=== PATIENT | female | born 1945 | race Caucasian/White ===

== ENCOUNTER 2019-02-02 07:50 | Day surgery (SDC) | payer MEDICARE, MEDICAID ==
[~2019-02-02] VITALS: Ht 165.1 cm; Wt 61.9 kg
[~2019-02-02 07:50] MED LIST: LEVO125T PO; OXYC5CAP2 PO
[2019-02-02 08:12] VITALS: BP 100/63
[2019-02-02] MEDS ORDERED: LACTATED RINGERS 1,000 ML IV SCH (08:16)
[2019-02-02] MEDS ORDERED: PLEASE ENTER HEIGHT AND WEIGHT MC SCH (08:30)
[2019-02-02] MEDS ORDERED: FENTANYL PF 250 MCG/5ML ONE (10:04)
[2019-02-02] MEDS ORDERED: PROPOFOL 10 MG/ML, 20ML ONE (10:05)
[2019-02-02] MEDS ORDERED: ONDANSETRON 2MG/ML, 2ML ONE (10:05)
[2019-02-02] MEDS ORDERED: CEFAZOLIN 1,000 MG ONE (10:05)
[2019-02-02] MEDS ORDERED: GLYCOPYRROLATE 0.2MG/1ML, 5ML ONE ×2 (10:05→10:14)
[2019-02-02] MEDS ORDERED: DEXAMETHASONE 4 MG/ML, 1ML ONE (10:05)
[2019-02-02] MEDS ORDERED: ROCURONIUM 10MG/ML,5ML ONE (10:05)
[2019-02-02] MEDS ORDERED: NEOSTIGMINE 1 MG/ML, 10ML ONE ×2 (10:05→10:14)
[2019-02-02] MEDS ORDERED: PHENYLEPHRINE 10 MG/ML ONE (10:14)
[2019-02-02] MEDS ORDERED: FENTANYL PF 100 MCG/2ML IV PRN (10:30)
[2019-02-02] MEDS ORDERED: PROMETHAZINE 25 MG/ML, 1ML IV PRN (10:30)
[2019-02-02] MEDS ORDERED: OXYcodone 5 MG/5 ML ORAL.SOL UDC PO PRN (10:30)
[2019-02-02] MEDS ORDERED: HYDROmorphone 2 MG/ML, 1ML IVPush PRN (10:30)
[2019-02-02] MEDS ORDERED: MORPHINE SULFATE 4 MG/ML, 1ML IVPush PRN (10:30)
[2019-02-02] MEDS ORDERED: OMNIPAQUE 350 MG/ML, 50 ML BOTTLE ONE (11:00)
== END 2019-02-02 12:45 | disposition home or self-care (01) ==
LOC: OUT 07:50
PROVIDERS: ATTEND Internal Medicine Geriatric Medicine
DX: C25.0 Malignant neoplasm of head of pancreas (principal); E03.9 Hypothyroidism, unspecified; Z79.890 Hormone replacement therapy; Z79.891 Long term (current) use of opiate analgesic
CPT/HCPCS: 43274; 74328; C1769; C1894; C2625; J0690; J1100; J2370; J2405; J2704; J2710; J3010; J7120; Q9967

== ENCOUNTER 2019-02-04 05:22 | Day surgery (SDC) | payer MEDICARE, MEDICAID ==
[~2019-02-04] VITALS: Ht 165.1 cm; Wt 62.0 kg
[2019-02-04] MEDS ORDERED: CEFAZOLIN 1,000 MG IVPB STA (06:04)
[2019-02-04] MEDS ORDERED: SODIUM CHLORIDE 0.9% 1,000 ML IV SCH (06:07)
[2019-02-04 06:27] VITALS: BP 107/63
[2019-02-04] MEDS ORDERED: CEFAZOLIN PMX 1GM/50ML 50 ML ONE (06:44)
[2019-02-04] MEDS ORDERED: LIDOCAINE 1%, 20ML ONE (07:57)
[2019-02-04] MEDS ORDERED: FENTANYL PF 100 MCG/2ML ONE (08:10)
[2019-02-04] MEDS ORDERED: MIDAZOLAM 1 MG/ML, 5ML ONE (08:10)
[2019-02-04] MEDS ORDERED: FLUMAZENIL 0.1 MG/1 ML, 5ML ONE (08:10)
[2019-02-04] MEDS ORDERED: NALOXONE 1 MG/ML, 2ML ONE (08:10)
[2019-02-04] MEDS ORDERED: LIDOCAINE 1%, 10ML ONE (08:55)
== END 2019-02-04 10:36 | disposition home or self-care (01) ==
LOC: OUT 05:22
PROVIDERS: ATTEND Internal Medicine
DX: C25.0 Malignant neoplasm of head of pancreas (principal); E03.9 Hypothyroidism, unspecified; Z90.49 Acquired absence of other specified parts of digestive tract; Z98.890 Other specified postprocedural states
CPT/HCPCS: 36561; 76937; 77001; 99156; 99157; C1788; J0690; J1642; J2250; J3010; J7030; J2310

== ENCOUNTER 2019-05-09 11:18 | Emergency (ER) | payer MEDICARE, MEDICAID ==
[~2019-05-09] VITALS: Ht 165.1 cm; Wt 60.1 kg
[2019-05-09] MEDS ORDERED: L.E.T SOLUTION TP ONE (11:58)
[2019-05-09] MEDS ORDERED: SODIUM CHLORIDE FLUSH 10ML SYR IVF ONE (12:00)
[2019-05-09] MEDS ORDERED: MORPHINE SULFATE 4 MG/ML, 1ML IVPush ONE (12:00)
[2019-05-09] MEDS ORDERED: ONDANSETRON 2MG/ML, 2ML IVPush ONE (12:00)
--- NOTE | 2019-05-09 12:00 | NUR ---
PT PLACED ON BP CUFF, PULSE OX. VSS. WARM BLANKET PROVIDED, CALL LIGHT WITHIN REACH.
[2019-05-09 12:30] LABS: MEAN CORPUSCULAR HGB CONC 33.7 g/dL (32.4-35.8); MEAN CORPUSCULAR VOLUME 83.1 fL (80-100); MEAN PLATELET VOLUME 8.5 fL (7.4-10.4); PLATELET COUNT 108 x10^3/uL (130-400); RED BLOOD COUNT 3.93 x10^6/uL (3.82-5.3); RED CELL DISTRIBUTION WIDTH 19.3 % (9.6-15.2)
[2019-05-09 12:36] LABS: ALANINE AMINOTRANSFERASE 224 U/L (12-78); ALBUMIN 2.5 g/dL (3.4-5.0); ANION GAP 8 mmol/L (5-15); CALCIUM 8.5 mg/dL (8.5-10.1); CHLORIDE 98 mmol/L (98-107)
[2019-05-09 12:37] LABS: ALKALINE PHOSPHATASE 253 U/L (45-117); BILIRUBIN,TOTAL 5.1 mg/dL (0.2-1.0); TOTAL PROTEIN 6.8 g/dL (6.4-8.2)
[2019-05-09] MEDS ORDERED: ONDANSETRON 2MG/ML, 2ML ONE (12:37)
[2019-05-09] MEDS ORDERED: MORPHINE SULFATE 4 MG/ML, 1ML ONE (12:37)
[2019-05-09 12:44] LABS: BASOPHILS # (AUTO) 0.01 x10^3/uL (0-0.1); BASOPHILS % (AUTO) 0 % (0-1); D-DIMER 4.39 ug/mlFEU (0.00-0.52); EOSINOPHILS # (AUTO) 0.02 x10^3/uL (0-0.4); EOSINOPHILS % (AUTO) 1 % (1-7); INTERNATIONAL NORMALIZED RATIO 1.01 (0.93-1.1); LYMPHOCYTES # (AUTO) 1.05 x10^3/uL (1-3.4); LYMPHOCYTES % (AUTO) 22 % (22-44); MD SCAN; MONOCYTES # (AUTO) 0.44 x10^3/uL (0.2-0.8); MONOCYTES % (AUTO) 9 % (2-9); NEUTROPHILS # (AUTO) 3.23 x10^3/uL (1.8-6.8); NEUTROPHILS % (AUTO) 68 % (42-75); PROTHROMBIN TIME 10.7 Seconds (9.6-11.5)
--- NOTE | 2019-05-09 12:45 | NUR ---
PORT TO R CHEST ACCESSED, UNABLE TO DRAW BLOOD OFF PORT. CALL TO LAB FOR 2ND BC TO BE DRAWN. PORT FLUSHES WELL, MEDS GIVEN PER ERP ORDER FOR NAUSEA AND BACK PAIN RATED 8/10. URINE COLLECTED/SENT TO LAB. VSS. AT BS, CALL LIGHT WITHIN REACH.
--- NOTE | 2019-05-09 13:33 | NUR ---
CALL TO CT TO VERIFY PORT ACCESS COMPATIBLE WITH CTA. PT RESING COMFORTABLY, PAIN DECREASED-PT SLEEPING INTERMITTENTLY.
[2019-05-09 13:40] LABS: MICROSCOPIC INDICATED
[2019-05-09 13:49] LABS: CULTURE INDICATED? YES
--- NOTE | 2019-05-09 14:03 | NUR ---
PT TO CT
[2019-05-09] MEDS ORDERED: OMNIPAQUE 350 MG/ML, 100ML BOTTLE ONE (14:34)
[2019-05-09 15:08] VITALS: BP 124/62
--- NOTE | 2019-05-09 15:15 | NUR ---
CT READS BACK, PT FOR RECHECK.
[2019-05-09] MEDS ORDERED: ONDA8TAB9 PO (15:32)
[2019-05-09] MEDS ORDERED: LEVO25TA4 PO (15:32)
[2019-05-09] MEDS ORDERED: PROC10TA2 PO (15:32)
[2019-05-09] MEDS ORDERED: OMEP40CA42 PO (15:32)
--- NOTE | 2019-05-09 15:34 | NUR ---
MED REC COMPLETED, AWAITING RECHECK BY ERP.
[2019-05-09] MEDS ORDERED: HYDROcodone/APAP 5/325 TABLET ONE (16:51)
[2019-05-09] MEDS ORDERED: HYDROcodone/APAP 5/325 TABLET PO ONE (17:00)
== END 2019-05-09 17:15 | disposition home or self-care (01) ==
LOC: ED 13:27
DX: K83.1 Obstruction of bile duct (principal); K85.90 Acute pancreatitis without necrosis or infection, unspecified; R10.84 Generalized abdominal pain; Z90.49 Acquired absence of other specified parts of digestive tract
CPT/HCPCS: 36415; 71045; 71275; 74177; 80053; 81001; 83605; 84145; 85025; 85379; 85610; 85730; 87040; 87086; 93005; 96374; 96375; 99284; J2270; J2405; Q9967; 87077

== ENCOUNTER 2019-05-11 07:08 | Day surgery (SDC) | payer MEDICARE, MEDICAID ==
[~2019-05-11] VITALS: Ht 165.1 cm; Wt 58.4 kg
[~2019-05-11 07:08] MED LIST changes: +LEVO25TA4 PO; +OMEP40CA42 PO; +ONDA8TAB9 PO; +PROC10TA2 PO
[2019-05-11] MEDS ORDERED: LACTATED RINGERS 1,000 ML IV SCH (07:54)
[2019-05-11] MEDS ORDERED: LIDOCAINE-MPF 1%, 2ML INFIL ONE (08:00)
[2019-05-11 08:18] VITALS: BP 133/77
[2019-05-11] MEDS ORDERED: SUCCINYLCHOLINE 20 MG/ML, 10ML ONE (10:38)
[2019-05-11] MEDS ORDERED: ROCURONIUM 10 MG/ML,10ML ONE (10:38)
[2019-05-11] MEDS ORDERED: ONDANSETRON 2MG/ML, 2ML ONE (10:38)
[2019-05-11] MEDS ORDERED: PROPOFOL 50 ML ONE (10:53)
[2019-05-11] MEDS ORDERED: DIAZEPAM 5 MG/ML, 2ML IVPush PRN (11:00)
[2019-05-11] MEDS ORDERED: FENTANYL PF 100 MCG/2ML IV PRN (11:00)
[2019-05-11] MEDS ORDERED: EPHEDRINE 50 MG/ML, 1ML IVPush PRN (11:00)
[2019-05-11] MEDS ORDERED: OXYcodone 5 MG/5 ML ORAL.SOL UDC PO PRN (11:00)
[2019-05-11] MEDS ORDERED: ONDANSETRON ODT 8 MG PO PRN (11:00)
[2019-05-11] MEDS ORDERED: DIPHENHYDRAMINE 50 MG/ML, 1ML IVPush PRN (11:00)
[2019-05-11] MEDS ORDERED: ONDANSETRON 2MG/ML, 2ML IV PRN (11:00)
[2019-05-11] MEDS ORDERED: PROMETHAZINE 25 MG/ML, 1ML IV PRN (11:00)
[2019-05-11] MEDS ORDERED: MORPHINE SULFATE 4 MG/ML, 1ML IVPush PRN (11:00)
[2019-05-11] MEDS ORDERED: EPHEDRINE 50 MG/ML, 1ML IM PRN (11:00)
[2019-05-11] MEDS ORDERED: LABETALOL 5MG/ML, 20ML IV PRN (11:00)
[2019-05-11] MEDS ORDERED: OMNIPAQUE 350 MG/ML, 50 ML BOTTLE ONE (11:17)
== END 2019-05-11 15:00 | disposition home or self-care (01) ==
LOC: OUT 07:08
PROVIDERS: ATTEND Internal Medicine
DX: C25.9 Malignant neoplasm of pancreas, unspecified (principal); K83.1 Obstruction of bile duct; I10 Essential (primary) hypertension; Z90.3 Acquired absence of stomach [part of]
CPT/HCPCS: 43276; 74328; C1769; C1874; J0330; J2405; J2704; J7120; Q9967

== ENCOUNTER → 2019-05-28 | Outpatient (CLI) | payer MEDICARE, MEDICAID | END | disposition home or self-care (01) | LOC: STAR 13:35 | PROVIDERS: ATTEND Nurse Practitioner Family | DX: Z01.818 Encounter for other preprocedural examination (principal); C25.0 Malignant neoplasm of head of pancreas | CPT/HCPCS: 93005 ==

== ENCOUNTER → 2019-05-28 | Outpatient (CLI) | payer MEDICARE, MEDICAID | END | disposition home or self-care (01) | LOC: RAD 13:32 | PROVIDERS: ATTEND Internal Medicine | DX: S33.140A Subluxation of L4/L5 lumbar vertebra, initial encounter (principal); M48.061 Spinal stenosis, lumbar region without neurogenic claudication; M25.78 Osteophyte, vertebrae; C25.0 Malignant neoplasm of head of pancreas; M41.56 Other secondary scoliosis, lumbar region; X58.XXXA Exposure to other specified factors, initial encounter; Y93.89 Activity, other specified; Y92.89 Other specified places as the place of occurrence of the external cause; Y99.8 Other external cause status | CPT/HCPCS: 72100 ==

== ENCOUNTER 2019-06-17 10:43 | Inpatient (IN) | payer MEDICARE, MEDICAID ==
[~2019-06-17] VITALS: Ht 162.6 cm; Wt 56.1 kg
[2019-06-17] MEDS ORDERED: SODIUM CHLORIDE 0.9% 1,000 ML IV ONE (11:10)
[2019-06-17] MEDS ORDERED: ONDANSETRON 2MG/ML, 2ML IVPush ONE (11:30)
[2019-06-17] MEDS ORDERED: SODIUM CHLORIDE FLUSH 10ML SYR IVF ONE (11:30)
[2019-06-17] MEDS ORDERED: ONDANSETRON 2MG/ML, 2ML ONE (12:09)
[2019-06-17 12:17] LABS: ALBUMIN 2.9 g/dL (3.4-5.0); ANION GAP 15 mmol/L (5-15); CALCIUM 9.1 mg/dL (8.5-10.1); CHLORIDE 93 mmol/L (98-107)
[2019-06-17 12:20] LABS: ALANINE AMINOTRANSFERASE 54 U/L (12-78); ALKALINE PHOSPHATASE 287 U/L (45-117); BILIRUBIN,TOTAL 0.7 mg/dL (0.2-1.0); CREATININE 0.64 mg/dL (0.55-1.02); TOTAL PROTEIN 7.8 g/dL (6.4-8.2)
[2019-06-17 12:25] LABS: MEAN CORPUSCULAR HEMOGLOBIN 28.7 pg (27.0-34.8); MEAN CORPUSCULAR VOLUME 84.5 fL (80-100); MEAN PLATELET VOLUME 7.8 fL (7.4-10.4); PLATELET COUNT 266 x10^3/uL (130-400); RED BLOOD COUNT 4.04 x10^6/uL (3.82-5.3); RED CELL DISTRIBUTION WIDTH 16.9 % (9.6-15.2)
[2019-06-17 12:26] LABS: MD YES
[2019-06-17 12:29] LABS: ANISOCYTOSIS 1+; BAND#(MANUAL) 0.54 x10^3/uL; BANDS%(MANUAL) 11 % (0-7); LYMPH#(MANUAL) 0.98 x10^3/uL (1-3.4); LYMPHS% (MANUAL) 20 % (22-44); MONOS#(MANUAL) 0.29 x10^3/uL (0.3-2.7); MONOS% (MANUAL) 6 % (2-9); SEG#(MANUAL) 3.09 x10^3/uL (1.8-6.8); SEGS% (MANUAL) 63 % (42-75)
[2019-06-17 12:30] LABS: <PLATELET ESTIMATE> ADEQUATE; <PLT MORPHOLOGY> NORMAL PLT MORPH
[2019-06-17] MEDS ORDERED: PROMETHAZINE 25 MG/ML, 1ML IM ONE (12:30)
[2019-06-17 12:31] LABS: POLYCHROMASIA 1+
[2019-06-17] MEDS ORDERED: PROMETHAZINE 25 MG/ML, 1ML ONE (12:49)
--- NOTE | 2019-06-17 15:19 | NUR ---
REPORT FROM RAMIRO NIELSEN, ASSUME CARE OF PT AT THIS TIME. PT RESTING, NAD, FAMILY AT BS. Addendum: 06/17/19 at 1640 by TATYANA PER RAMIRO NIELSEN, MULTIPLE ATTEMPTS INCLUDING US GUIDED IV ATTEMPTED WITH ALL ATTEMPTS FAILING. PT ASKING FOR PORT TO NOT BE ACCESSED UNTIL UP IN ONCOLOGY.
[2019-06-17] MEDS ORDERED: PROMETHAZINE 25 MG/ML, 1ML IM PRN (15:30)
[2019-06-17] MEDS ORDERED: MAGNESIUM SULFATE PMX 2GM/50ML 50 ML IV ONE (15:30)
[2019-06-17 15:34] LABS: FREE T4 (FREE THYROXINE) 1.11 ng/dL (0.76-1.46)
[2019-06-17] MEDS ORDERED: OXYC5CAP2 PO (15:45)
--- NOTE | 2019-06-17 16:35 | NUR ---
REPORT TO DAINA RN, PT READY FOR TRANSPORT.
[2019-06-17 18:22] VITALS: BP 113/77
[2019-06-17] MEDS: POTASSIUM CHLORIDE 20 MEQ in LACTATED RINGERS 1,000 ML IV SCH ×2 (21:01→23:06)
[2019-06-17] MEDS: ONDANSETRON 2MG/ML, 2ML IVPush SCH (21:02)
[2019-06-17] MEDS: ENOXAPARIN 40 MG/0.4 ML SQ SCH (21:03)
[2019-06-17] MEDS ORDERED: MAGNESIUM SULFATE PMX 2GM/50ML 50 ML ONE (23:02)
[2019-06-18 00:02] VITALS: BP 100/64
[2019-06-18] MEDS: MORPHINE SULFATE 4 MG/ML, 1ML IVPush PRN (01:30)
[2019-06-18] MEDS: ONDANSETRON 2MG/ML, 2ML IVPush SCH ×4 (03:42→20:18)
[2019-06-18 05:37] LABS: BASOPHILS # (AUTO) 0.02 x10^3/uL (0-0.1); BASOPHILS % (AUTO) 0 % (0-1); EOSINOPHILS # (AUTO) 0.05 x10^3/uL (0-0.4); EOSINOPHILS % (AUTO) 1 % (1-7); LYMPHOCYTES # (AUTO) 1.53 x10^3/uL (1-3.4); LYMPHOCYTES % (AUTO) 35 % (22-44); MD NO; MEAN CORPUSCULAR HEMOGLOBIN 28.4 pg (27.0-34.8); MEAN CORPUSCULAR HGB CONC 33.4 g/dL (32.4-35.8); MEAN PLATELET VOLUME 7.2 fL (7.4-10.4); MONOCYTES # (AUTO) 0.44 x10^3/uL (0.2-0.8); MONOCYTES % (AUTO) 10 % (2-9); NEUTROPHILS # (AUTO) 2.35 x10^3/uL (1.8-6.8); NEUTROPHILS % (AUTO) 54 % (42-75); PLATELET COUNT 292 x10^3/uL (130-400); RED BLOOD COUNT 3.66 x10^6/uL (3.82-5.3); RED CELL DISTRIBUTION WIDTH 17.6 % (9.6-15.2)
[2019-06-18 05:48] LABS: ANION GAP 10 mmol/L (5-15); CALCIUM 8.6 mg/dL (8.5-10.1); CHLORIDE 98 mmol/L (98-107)
[2019-06-18 05:50] LABS: CREATININE 0.53 mg/dL (0.55-1.02)
[2019-06-18] MEDS: LEVOTHYROXINE 25 MCG TABLET PO SCH (06:27)
[2019-06-18] MEDS ORDERED: POTASSIUM CHLORIDE 20 MEQ in SODIUM CHLORIDE 0.9% 250 ML IV ONE (06:30)
[2019-06-18 07:40] LABS: CULTURE INDICATED? YES; MICROSCOPIC INDICATED
[2019-06-18] MEDS: PANTOPRAZOLE 40 MG IV IVPush SCH (08:00)
[2019-06-18 08:23] VITALS: BP 107/65
[2019-06-18] MEDS ORDERED: LIDODERM 5% PATCH TD ONE (09:30)
[2019-06-18] MEDS: POTASSIUM CHLORIDE 20 MEQ in LACTATED RINGERS 1,000 ML IV SCH ×2 (11:42→20:18)
[2019-06-18 11:57] LABS: CLOSTRIDIUM DIFFICILE TOXIN NEGATIVE (Negative)
[2019-06-18 11:58] LABS: CLOSTRIDIUM DIFFICILE ANTIGEN POSITIVE
[2019-06-18 14:24] VITALS: BP 97/60
[2019-06-18] MEDS: VANCOMYCIN 50 MG/ML ORAL SUSP PO SCH ×2 (15:07→20:18)
[2019-06-18] MEDS: ENOXAPARIN 40 MG/0.4 ML SQ SCH (17:59)
[2019-06-18 18:48] VITALS: BP 108/65
[2019-06-19 01:14] VITALS: BP 114/70
[2019-06-19] MEDS: ONDANSETRON 2MG/ML, 2ML IVPush SCH ×4 (02:55→20:57)
[2019-06-19] MEDS: VANCOMYCIN 50 MG/ML ORAL SUSP PO SCH ×4 (02:55→20:57)
[2019-06-19] MEDS: MORPHINE SULFATE 4 MG/ML, 1ML IVPush PRN ×3 (03:06→22:36)
[2019-06-19] MEDS: POTASSIUM CHLORIDE 20 MEQ in LACTATED RINGERS 1,000 ML IV SCH ×2 (05:23→18:09)
[2019-06-19] MEDS: LEVOTHYROXINE 25 MCG TABLET PO SCH (05:23)
[2019-06-19 05:25] LABS: ANION GAP 6 mmol/L (5-15); CALCIUM 8.4 mg/dL (8.5-10.1); CHLORIDE 106 mmol/L (98-107); CREATININE 0.48 mg/dL (0.55-1.02)
[2019-06-19 08:10] VITALS: BP_SYST 133; BP_SYST 166; BP_DIAS 70; BP_DIAS 78
[2019-06-19] MEDS: PANTOPRAZOLE 40 MG IV IVPush SCH (09:53)
[2019-06-19 14:58] VITALS: BP 105/66
[2019-06-19] MEDS: ENOXAPARIN 40 MG/0.4 ML SQ SCH (18:10)
[2019-06-19 20:05] VITALS: BP 111/62
[2019-06-20 03:29] VITALS: BP 111/64
[2019-06-20] MEDS: POTASSIUM CHLORIDE 20 MEQ in LACTATED RINGERS 1,000 ML IV SCH ×3 (03:38→23:04)
[2019-06-20 05:23] LABS: BASOPHILS # (AUTO) 0.01 x10^3/uL (0-0.1); BASOPHILS % (AUTO) 0 % (0-1); EOSINOPHILS # (AUTO) 0.09 x10^3/uL (0-0.4); EOSINOPHILS % (AUTO) 3 % (1-7); LYMPHOCYTES # (AUTO) 1.07 x10^3/uL (1-3.4); LYMPHOCYTES % (AUTO) 32 % (22-44); MD NO; MEAN CORPUSCULAR HEMOGLOBIN 28.5 pg (27.0-34.8); MEAN CORPUSCULAR HGB CONC 33.5 g/dL (32.4-35.8); MEAN PLATELET VOLUME 7.2 fL (7.4-10.4); MONOCYTES # (AUTO) 0.31 x10^3/uL (0.2-0.8); MONOCYTES % (AUTO) 9 % (2-9); NEUTROPHILS # (AUTO) 1.81 x10^3/uL (1.8-6.8); NEUTROPHILS % (AUTO) 55 % (42-75); PLATELET COUNT 213 x10^3/uL (130-400); RED BLOOD COUNT 3.16 x10^6/uL (3.82-5.3)
[2019-06-20 05:24] LABS: ANION GAP 8 mmol/L (5-15); CALCIUM 8.3 mg/dL (8.5-10.1); CHLORIDE 103 mmol/L (98-107)
[2019-06-20 05:25] LABS: CREATININE 0.39 mg/dL (0.55-1.02)
[2019-06-20] MEDS: ONDANSETRON 2MG/ML, 2ML IVPush SCH ×4 (06:02→23:04)
[2019-06-20] MEDS: VANCOMYCIN 50 MG/ML ORAL SUSP PO SCH ×4 (06:02→23:03)
[2019-06-20] MEDS: LEVOTHYROXINE 25 MCG TABLET PO SCH (06:07)
[2019-06-20 06:31] VITALS: BP 108/67
[2019-06-20] MEDS: PANTOPRAZOLE 40 MG IV IVPush SCH (09:01)
[2019-06-20] MEDS ORDERED: POTASSIUM CHLORIDE 40 MEQ in SODIUM CHLORIDE 0.9% 500 ML IV ONE (10:00)
[2019-06-20] MEDS: CEFTRIAXONE PMX 2GM/50ML 50 ML IV SCH (11:36)
[2019-06-20 12:34] VITALS: BP 152/76
[2019-06-20] MEDS: MORPHINE SULFATE 4 MG/ML, 1ML IVPush PRN ×2 (12:44→20:44)
[2019-06-20] MEDS: ENOXAPARIN 40 MG/0.4 ML SQ SCH (17:07)
[2019-06-20 20:15] VITALS: BP 137/75
[2019-06-21 02:40] VITALS: BP 137/77
[2019-06-21] MEDS: VANCOMYCIN 50 MG/ML ORAL SUSP PO SCH ×4 (05:24→23:02)
[2019-06-21] MEDS: ONDANSETRON 2MG/ML, 2ML IVPush SCH ×4 (05:24→23:02)
[2019-06-21] MEDS: LEVOTHYROXINE 25 MCG TABLET PO SCH (05:25)
[2019-06-21 05:29] LABS: ANION GAP 7 mmol/L (5-15); CALCIUM 8.3 mg/dL (8.5-10.1); CHLORIDE 101 mmol/L (98-107)
[2019-06-21 05:32] LABS: CREATININE 0.31 mg/dL (0.55-1.02)
[2019-06-21 08:02] VITALS: BP 141/75
[2019-06-21] MEDS ORDERED: morphine SULFATE 10 MG/ML, 1ML ONE (08:52)
[2019-06-21] MEDS: MORPHINE SULFATE 4 MG/ML, 1ML IVPush PRN (08:53)
[2019-06-21] MEDS: PANTOPRAZOLE 40 MG IV IVPush SCH (08:54)
[2019-06-21] MEDS ORDERED: MAGNESIUM SULFATE PMX 2GM/50ML 50 ML IV ONE (09:30)
[2019-06-21] MEDS: POTASSIUM CHLORIDE 20 MEQ in LACTATED RINGERS 1,000 ML IV SCH ×2 (09:45→14:32)
[2019-06-21] MEDS: SODIUM CHLORIDE 1 GM TABLET PO SCH ×3 (09:46→21:11)
--- NOTE | 2019-06-21 10:47 | NUR ---
Pt would benefit from PT once medically cleared to DC Addendum: 06/21/19 at 1050 by uTng Steinberg PT Amended: Links added.
[2019-06-21] MEDS: CEFTRIAXONE PMX 2GM/50ML 50 ML IV SCH (12:59)
[2019-06-21 14:40] VITALS: BP 139/68
[2019-06-21] MEDS: OXYcodone IR 5MG TABLET PO SCH ×2 (16:12→21:12)
[2019-06-21] MEDS: ENOXAPARIN 40 MG/0.4 ML SQ SCH (17:09)
[2019-06-21] MEDS: OXYcodone IR 5MG TABLET PO PRN (17:19)
[2019-06-21 18:18] VITALS: BP 123/78
[2019-06-21] MEDS: MAGNESIUM CHLORIDE 64 MG TABLET.DR PO SCH (21:12)
[2019-06-22 02:13] VITALS: BP 123/74
[2019-06-22] MEDS: OXYcodone IR 5MG TABLET PO PRN ×2 (05:32→14:52)
[2019-06-22] MEDS: ONDANSETRON 2MG/ML, 2ML IVPush SCH ×2 (05:32→13:08)
[2019-06-22] MEDS: LEVOTHYROXINE 25 MCG TABLET PO SCH (05:32)
[2019-06-22] MEDS: VANCOMYCIN 50 MG/ML ORAL SUSP PO SCH ×2 (05:37→13:08)
[2019-06-22 06:36] VITALS: BP 125/76
[2019-06-22 07:21] LABS: ANION GAP 6 mmol/L (5-15); CALCIUM 8.3 mg/dL (8.5-10.1); CHLORIDE 99 mmol/L (98-107); CREATININE 0.49 mg/dL (0.55-1.02)
[2019-06-22] MEDS: PANTOPRAZOLE 40 MG IV IVPush SCH (08:53)
[2019-06-22] MEDS: OXYcodone IR 5MG TABLET PO SCH ×2 (08:54→16:00)
[2019-06-22] MEDS: SODIUM CHLORIDE 1 GM TABLET PO SCH ×2 (08:54→16:25)
[2019-06-22] MEDS: MAGNESIUM CHLORIDE 64 MG TABLET.DR PO SCH (08:54)
[2019-06-22] MEDS: CEFTRIAXONE PMX 2GM/50ML 50 ML IV SCH (08:55)
[2019-06-22 12:57] VITALS: BP 128/74
[2019-06-22] MEDS ORDERED: SODI1TAB PO ×2 (13:16)
[2019-06-22] MEDS ORDERED: VANC125C3 PO (13:16)
[2019-06-22] MEDS ORDERED: MAGN70TA2 PO (13:16)
[2019-06-22] MEDS ORDERED: CEFD300C37 PO (13:16)
== END 2019-06-22 17:02 | disposition home or self-care (01) | DRG 371 ==
LOC: ED 14:03 → INTOOBSV 15:01 → EDIP 15:01 → 4NW 16:42 → OBSVTOIN 06-18 15:34
PROVIDERS: ADMIT Hospitalist; ATTEND Hospitalist
DX: A04.72 Enterocolitis due to Clostridium difficile, not specified as recurrent (principal); E43 Unspecified severe protein-calorie malnutrition; C25.9 Malignant neoplasm of pancreas, unspecified; E87.1 Hypo-osmolality and hyponatremia; E87.2 Acidosis; N39.0 Urinary tract infection, site not specified; B96.20 Unspecified Escherichia coli [E. coli] as the cause of diseases classified elsewhere; D64.9 Anemia, unspecified; D72.825 Bandemia; E03.9 Hypothyroidism, unspecified; E86.0 Dehydration; T45.1X5A Adverse effect of antineoplastic and immunosuppressive drugs, initial encounter; E86.1 Hypovolemia; E87.6 Hypokalemia; Z83.3 Family history of diabetes mellitus; Z85.07 Personal history of malignant neoplasm of pancreas; Z68.21 Body mass index [BMI] 21.0-21.9, adult; Z90.49 Acquired absence of other specified parts of digestive tract
CPT/HCPCS: 36415; 71045; 80048; 80053; 81001; 83605; 83690; 83735; 84100; 84439; 84443; 85025; 87046; 87077; 87086; 87186; 87324; 87427; 87493; 93005; 96372; 99285; G0378; J0696; J1650; J2405; J2550; J3370; J3480; C9113; J2270; J3475; J7040; J7050; J7120